=== PATIENT | female | born 1985 | race Caucasian/White ===

== ENCOUNTER 2018-02-11 18:16 | Outpatient (CLI) | payer OTHER | END 2018-02-12 10:53 | disposition home or self-care (01) | LOC: OBS/DEL 18:16 | DX: O46.8X2 Other antepartum hemorrhage, second trimester (principal); O47.02 False labor before 37 completed weeks of gestation, second trimester; Z34.82 Encounter for supervision of other normal pregnancy, second trimester ==

== ENCOUNTER 2018-03-23 07:00 | Outpatient (CLI) | payer OTHER | END 2018-03-24 12:00 | disposition home or self-care (01) | LOC: OBS/DEL 07:00 → LDR 17:54 → OBS/DEL 03-24 12:00 → EDSTATUS 05-08 14:37 | DX: O26.892 Other specified pregnancy related conditions, second trimester (principal); K59.09 Other constipation; Z34.82 Encounter for supervision of other normal pregnancy, second trimester ==

== ENCOUNTER 2018-06-08 14:51 | Inpatient (IN) | payer OTHER ==
[~2018-06-08] VITALS: Ht 157.5 cm; Wt 3.2 kg
[2018-06-08] MEDS ORDERED: SURFAK240 M1 (15:28)
[2018-06-13] MEDS ORDERED: PRENATAL PLUS1 EAC1 PO (07:58)
[2018-06-13] MEDS ORDERED: FOLIC ACID1 MG PO (07:59)
== END 2018-06-16 15:47 | disposition home or self-care (01) | DRG 788 ==
LOC: O/R 06-13 06:40 → LDR 06-13 09:15 → OB/GYN 06-13 13:34 → LDR 06-13 14:33 → OB/GYN 06-16 15:47
PROVIDERS: ADMIT Obstetrics & Gynecology
PROC: 4A1HXCZ Monitoring of Products of Conception, Cardiac Rate, External Approach (ICD-10-PCS; 2018-06-13)
PROC: 10D00Z1 Extraction of Products of Conception, Low, Open Approach (ICD-10-PCS; principal; 2018-06-13 09:15)
DX: O82 Encounter for cesarean delivery without indication (principal); O34.211 Maternal care for low transverse scar from previous cesarean delivery; O75.82 Onset (spontaneous) of labor after 37 completed weeks of gestation but before 39 completed weeks gestation, with delivery by (planned) cesarean section; Z3A.39 39 weeks gestation of pregnancy; Z37.0 Single live birth

== ENCOUNTER 2023-06-14 06:09 | Day surgery (SDC) | payer OTHER ==
[2023-06-08 13:25] LABS: URINE APPEARANCE Clear; URINE BILIRRUBIN Negative (NEGATIVE); URINE BLOOD Negative; URINE COLOR Yellow; URINE GLUCOSE Negative (NEGATIVE); URINE LEUKOCYTE Negative; URINE NITRATE Negative; URINE PROTEIN Negative (NEGATIVE); URINE UROBILINOGEN 0.2 E.U./dl
[2023-06-08 13:28] LABS: HEMATOCRIT 35.8 % (36.0-45.00); HEMOGLOBIN 11.6 g/dL (12.0-15.00); MEAN CELL VOLUME 75.6 fL (80.00-100.00); MEAN CORPUSCULAR HEMOGLOBIN 24.4 pg (27.00-32.0); MEAN CORPUSCULAR HGB CONC 32.3 g/dl (32.0-36.0); PLATELET COUNT 330 K/uL (150-450); RED BLOOD COUNT 4.74 M/uL (4.00-6.00)
[2023-06-08 13:30] LABS: URINE BACTERIA 30.1 uL (0.0-1933); URINE EPITHELIAL CELLS 7.8 uL (0.0-38.8); URINE RBC 2.4 uL (0.0-20.8)
[2023-06-08 13:31] LABS: URINE WBC 0.4 uL (0.0-23.2)
[2023-06-08 13:33] LABS: RED CELL DISTRIBUTION WIDTH 18.7 % (11.5-14.5)
[2023-06-08 13:47] LABS: ALBUMIN 3.9 gm/dL (3.4-5.0); BILIRUBIN TOTAL 0.8 mg/dL (0.3-1.2); CALCIUM 9.5 mg/dL (8.5-10.1); CREATININE SERUM 0.64 mg/dL (0.55-1.02); GLOBULINA 4.4 G/DL (2.4-3.5); POTASSIUM 4.34 mEq/L (3.5-5.1); TOTAL PROTEIN 8.3 gm/dL (6.4-8.2)
[2023-06-08 13:49] LABS: INR 1.08; PARTIAL THROMBOPLASTIN TIME 30.5 SECONDS (22.0-34.0); PROTHROMBIN TIME 11.3 SECONDS (9.0-11.5)
[~2023-06-14 06:09] MED LIST: FOLIC ACID1 MG PO; PRENATAL PLUS1 EAC1 PO; SURFAK240 M1
[2023-06-14] MEDS ORDERED: METRONIDAZOLE/SODIUM CHLORIDE 500 MG/100 ML PIGGYBACK IV ONE ×2 (07:26→10:00)
[2023-06-14] MEDS ORDERED: CEFTRIAXONE SODIUM 2,000 MG VIAL ONE (07:26)
[2023-06-14] MEDS ORDERED: HEMOSTATIC MATRIX 1 KIT KIT TOP ONE ×2 (09:27→10:00)
[2023-06-14] MEDS ORDERED: DIBUCAINE 15 GM OINT..GM. TUBE ONE (09:27)
[2023-06-14] MEDS ORDERED: BUPIVACAINE HCL/PF 0.5% 30ML ML ONE (09:27)
[2023-06-14] MEDS ORDERED: LIDOCAINE HCL/EPINEPHRINE 10MG/ML 1% 50ML IJ ONE (09:27)
[2023-06-14] MEDS ORDERED: DIBUCAINE 15 GM OINT..GM. TUBE RECTAL ONE (10:00)
[2023-06-14] MEDS ORDERED: POVIDONE-IODINE 118 ML BOTT TOP ONE (10:00)
[2023-06-14] MEDS ORDERED: BUPIVACAINE HCL 30 ML VIAL IJ ONE (10:00)
[2023-06-14] MEDS ORDERED: CEFTRIAXONE SODIUM 2,000 MG VIAL IV ONE (10:00)
[2023-06-14] MEDS ORDERED: LIDOCAINE HCL 1%/Epi 20ML VIAL IJ ONE (10:00)
[2023-06-14] MEDS ORDERED: ONDANSETRON HCL 2 MG/ML VIAL ONE (15:04)
== END 2023-06-14 17:50 | disposition home or self-care (01) ==
LOC: CIR.AMB 06:09
PROVIDERS: ATTEND Colon & Rectal Surgery
DX: K64.2 Third degree hemorrhoids (principal); K64.4 Residual hemorrhoidal skin tags; K92.1 Melena; K64.8 Other hemorrhoids